=== PATIENT | female | born 1950 | race Caucasian/White ===

== ENCOUNTER → 2023-04-08 14:36 | Outpatient (CLI) | payer OTHER, SELFPAY ==
[2023-04-08 15:30] LABS: Add Manual Diff / Slide Review NO; Basophils Absolute Auto 0 /uL (0-100); Basophils Percent Auto 0.6 % (0-2); Eosinophils Absolute Auto 100 /uL (0-450); Eosinophils Percent Auto 2.4 % (2-4); Hematocrit 38.8 % (36-46); Lymphocytes Absolute Auto 1500 /uL (1100-4500); Mean Corpuscular HGB Conc 33.5 % (30-36); Mean Corpuscular Hemoglobin 31.8 PG (26-34); Mean Corpuscular Volume 94.9 fL (80-100); Monocytes Absolute Auto 300 /uL (0-900); Neutrophils Absolute Auto 2800 /uL (1500-7000); Platelet Count 216 X10^3/uL (150-400); Red Blood Cell Count 4.09 X10^6/uL (4.0-5.2); Red Cell Distribution Width 13.9 % (11.6-14.8); White Blood Cell Count 4.7 X10^3/uL (4.5-11.0)
[2023-04-08 15:39] LABS: Hemoglobin A1C% w Est Avg Glu 5.9 % (4.0-6.0)
[2023-04-08 16:32] LABS: Alanine Aminotransferase 18 IU/L (<35); Albumin 3.7 g/dL (3.5-5.0); Albumin Globulin Ratio 1.4 (1.0-2.8); Alkaline Phosphatase 45 U/L (38-126); Aspartate Aminotransferase 25 IU/L (14-36); BUN Creatinine Ratio 22.8 (6-22); Bilirubin Total 0.6 mg/dL (0.2-1.3); Blood Urea Nitrogen 21 mg/dL (7-17); Calcium 8.9 mg/dL (8.4-10.2); Carbon Dioxide 30 mmol/L (22-32); Chloride 101 mmol/L (98-107); Cholesterol 137 mg/dL (140-199); Estimated Glomerular Filt Rate > 60 mL/min (>60); Globulin 2.6 g/dL (1.7-4.1); Glucose 132 mg/dL (80-110); HDL Cholesterol 63 mg/dL (40-60); HEMOLYSIS < 15 (0-50); LDL Cholesterol Calculated 42 mg/dL (<100); Potassium 3.7 mmol/L (3.4-5.1); Sodium 138 mmol/L (137-145); Total Protein 6.3 g/dL (6.3-8.2); Triglycerides 158 mg/dL (35-150)
[2023-04-08 17:00] LABS: Thyroid Stimulating Hormone 1.57 uIU/mL (0.47-4.68)
[2023-04-10 16:54] LABS: HIV 1 & 2 Ab/Ag 4th Gen Combo NEGATIVE (NEGATIVE); Hep C Virus Ab w/Reflex Quant NEGATIVE s/c (NEGATIVE)
== END ==
PROVIDERS: Family Provider Family Medicine; PCP Family Medicine; Referring Provider Family Medicine; Visit Provider Family Medicine
DX: G40.909 Epilepsy, unspecified, not intractable, without status epilepticus (principal); F32.A Depression, unspecified; E03.9 Hypothyroidism, unspecified; Z13.9 Encounter for screening, unspecified; Z13.220 Encounter for screening for lipoid disorders; Z79.810 Long term (current) use of selective estrogen receptor modulators (SERMs); Z11.4 Encounter for screening for human immunodeficiency virus [HIV]; Z85.3 Personal history of malignant neoplasm of breast; K22.70 Barrett's esophagus without dysplasia; Z11.59 Encounter for screening for other viral diseases; Z13.1 Encounter for screening for diabetes mellitus
CPT/HCPCS: 36415; 80053; 80061; 83036; 84443; 85025; 86803; 87389

== ENCOUNTER → 2023-04-09 14:39 | Outpatient (CLI) | payer OTHER, SELFPAY ==
[2023-04-09 18:35] LABS: Urine N gonorrhoeae NOT DETECTED
[2023-04-09 18:47] LABS: Urine Chlamydia NOT DETECTED
== END ==
PROVIDERS: Family Provider Family Medicine; PCP Family Medicine; Referring Provider Family Medicine; Visit Provider Family Medicine
DX: Z13.9 Encounter for screening, unspecified (principal); N89.8 Other specified noninflammatory disorders of vagina
CPT/HCPCS: 87491; 87591

== ENCOUNTER → 2023-04-11 14:55 | Outpatient (CLI) | payer OTHER, SELFPAY | PROVIDERS: Family Provider Family Medicine; PCP Family Medicine; Visit Provider Family Medicine | DX: N89.8 Other specified noninflammatory disorders of vagina (principal) | CPT/HCPCS: 87210 ==

== ENCOUNTER → 2023-07-09 10:41 | Outpatient (CLI) | payer OTHER, SELFPAY | PROVIDERS: Family Provider Family Medicine; PCP Family Medicine; Visit Provider Physician Assistant | DX: N89.8 Other specified noninflammatory disorders of vagina (principal) | CPT/HCPCS: 81001; 87086; 87210 ==

== ENCOUNTER → 2023-07-18 08:44 | Outpatient (CLI) | payer OTHER, SELFPAY ==
--- NOTE | 2023-07-18 08:45 | DI.US.S_ITS ---
PROCEDURE: US PELVIC COMPLETE INDICATIONS: vaginal discharge and vaginal bleeding TECHNIQUE: Real-time scanning was performed of the pelvic organs, with image documentation. Additional endovaginal scanning was necessary due to incomplete visualization of the adnexal and endometrial structures by transabdominal scanning. COMPARISON: None. FINDINGS: Uterus: Uterus is retroverted and normal in size at 7.7 x 3.4 x 5.8 cm. The myometrium is heterogeneous. Complex cystic area within the fundal endometrium. There is a right anterior subserosal fibroid measuring 3.6 x 2.4 x 4.3 cm. Ovaries: The right ovary is not seen. The left ovary measures 2.7 x 1.2 x 1.5 cm, with a calculated ovarian volume of 2.5 cc. Normal appearance of the left ovary. No adnexal masses are seen. Other: No pathologic free abdominal or pelvic fluid. IMPRESSION: Complex cystic area within the fundal endometrium. Recommend further evaluation with endometrial sampling or short-term follow-up ultrasound. Subserosal fibroid measuring 4.3 cm. Right ovary is not seen. Left ovary is normal in appearance. We strive to produce accurate, complete, and clear reports of imaging services. To assist us in improving patient care, this report was composed using standard report templates and voice recognition software. Therefore, it may contain abnormal punctuation, insertions and/or omissions. Occasional wrong-word or sound-alike substitutions may occur. Though we review the report and make efforts to correct it, we do recommend that the report be read carefully in proper context to recognize any text inaccuracies. Dictated by: Sanjay Yin M.D. on 07/18/2023 at 9:51 Approved by: Sanjay Yin M.D. on 07/18/2023 at 9:59
== END ==
PROVIDERS: Family Provider Family Medicine; PCP Family Medicine; Referring Provider Physician Assistant; Visit Provider Physician Assistant
DX: N93.9 Abnormal uterine and vaginal bleeding, unspecified (principal); N89.8 Other specified noninflammatory disorders of vagina; D25.2 Subserosal leiomyoma of uterus
CPT/HCPCS: 76856

== ENCOUNTER → 2023-08-08 16:01 | Outpatient (CLI) | payer OTHER, SELFPAY | PROVIDERS: PCP Family Medicine; Visit Provider Obstetrics & Gynecology | DX: R31.9 Hematuria, unspecified (principal); R82.998 Other abnormal findings in urine | CPT/HCPCS: 87086 ==

== ENCOUNTER 2023-08-14 06:41 | Day surgery (SDC) | payer OTHER, SELFPAY ==
[2023-08-06 15:08] VITALS: BMI 26.3
--- NOTE | 2023-08-14 | PATH_ITS ---
[facility] Accession Number: [id number] No. of containers..02 Tissue . 01 Material submitted: . PART A: endocervix - ENDOCERVICAL CURRETTINGS PART B: endometrium - ENDOMETRIAL CURRETTINGS . 01 Diagnosis: A. Endocervical curettings: Benign reactive endocervical glands with active inflammation, with benign superficial squamous epithelium is seen. Negative for malignancy. See comment. -- B. Endometrial curettings: Benign strips of inactive endometrium. Negative for atypia, hyperplasia, or malignancy. -- Comment for part A. Reactive endocervical glands are seen with occasional glands with multinucleation and active inflammation therefore immunohistochemical stains are performed on part A with appropriate controls and show: p16 is negative, and HSV1/2 is negative. Technical Note: The immunohistochemical stains reported were performed at [facility] [place] ([address], [facility] [address]). They were developed and their performance characteristics determined by [employer]. They have not been cleared or approved by the U.S. Food and Drug Administration, although such approval is not required for analyte-specific reagents of this type. [facility] 08/21/2023 1230 Local . 01 Electronically signed: . Shankar Newton MD, Pathologist NPI- [id number] . 01 Gross description: . Part A: ENDOCERVICAL CURRETTINGS: Received in formalin are minute fragments of mucoid and hemorrhagic material measuring 0.5 x 0.5 x 0.1 cm in aggregate. Submitted in toto in 1 cassette. Part B: ENDOMETRIAL CURRETTINGS: Received in formalin are minute fragments of mucoid and hemorrhagic material measuring 1.0 x 1.0 x 0.2 cm in aggregate. Submitted in toto in 1 cassette. /[facility] 08/19/2023 1808 Local . 01 Pathologist provided ICD-10: R93.5 . 01 CPT . 250596, 126108, V10688, I16425 Specimen Comment: A courtesy copy of this report has been sent to [phone] Performed at: [address] [facility] [address] [address], [place], [place] [id number] MD Gianni Ortega MD Phone: [phone]
[2023-08-14 07:25] VITALS: BP 129/75; PULSE 66; RESP 14; TEMP 36.4; O2SAT 97; BMI 26.3
[2023-08-14] MEDS: LACTATED RINGERS 1,000 ML 42 ML IV (07:32)
[2023-08-14] MEDS: ACETAMINOPHEN 325 MG TABLET 975 MG PO (07:34)
--- NOTE | 2023-08-14 07:38 | PM.PREOP ---
Pre-operative Note COVID-19 COVID-19 status: Not tested Interval Note History & Physical reviewed/Exam performed by Physician: Yes Changes to H&P: No
--- NOTE | 2023-08-14 08:02 | SUR.OPER ---
Lithotomy on padded OR bed, head on pillow, arms secured on padded arm boards at <90 degrees abduction. Legs secured in padded yellow fins stirrups.
[2023-08-14 08:28] VITALS: BP 128/62; PULSE 68; RESP 20; TEMP 36.6; O2SAT 98
--- NOTE | 2023-08-14 08:32 | P.OP_ITS ---
Operative Date/Time/Diagnoses Date of procedure: 08/14/23 Time of procedure: 08:00 Pre-op diagnosis: Abnormal endometrial stripe on ultrasound Post-op diagnosis: same Procedure & Clinicians Procedure: Procedures Operation Date: 08/14/23 07:45 Actual Procedure Side Surgeon p Hysteroscopy with Dilation & Curettage of the uterus César Cardenas MD Indications: Krystina is a 73-year-old , LMP in her early 50s who presents with a several year history of vaginal discharge. The vaginal discharge is light yel low, non odorous, non irritating, and she has no itching with it. 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 Her Paps have always been normal with her most recent about 2 years ago. In addition the patient has experienced light vaginal bleeding following pelvic exam and after vaginal ultrasound. A recent pelvic ultrasound performed 07/18/2023 shows: FINDINGS: Uterus: Uterus is retroverted and normal in size at 7.7 x 3.4 x 5.8 cm. The myometrium is heterogeneous. Complex cystic area within the fundal endometrium. There is a right anterior subserosal fibroid measuring 3.6 x 2.4 x 4.3 cm. Ovaries: The right ovary is not seen. The left ovary measures 2.7 x 1.2 x 1.5 cm, with a calculated ovarian volume of 2.5 cc. Normal appearance of the left ovary. No adnexal masses are seen. Other: No pathologic free abdominal or pelvic fluid. IMPRESSION: Complex cystic area within the fundal endometrium. Recommend further evaluation with endometrial sampling or short-term follow-up ultrasound. Subserosal fibroid measuring 4.3 cm. Right ovary is not seen. Left ovary is normal in appearance. We had an extended discussion about the cause and nature of her vaginal discharge along with the endometrial abnormality seen on ultrasound. We discussed options for further evaluation of her endometrial abnormality noted on ultrasound. Endometrial biopsy would be an option but given that this is a localized lesion in the uterine fundus, and the diagnostic accuracy of endometrial biopsy is less than 100% particularly with localized lesions, she would instead prefer to move forward with hysteroscopy and possible biopsies along with dilation and curettage of the uterus. I concur fully with her decision and will move forward with scheduling hysteroscopy with possible biopsies and dilation and curettage. She presents today for her scheduled surgery. Surgeon: César Cardenas Anesthesia Type: General Operative Notes Findings: Stage II uterovaginal prolapse. Stage II-III enterocele/rectocele complex. The endometrium is atrophic and what is seen on ultrasound appears to be either scarring in the midline of the fundus or possibly a small midline septum. No endometrial abnormalities were seen and both tubal ostia were visualized. The endometrial cavity was documented photographically. Closure Type: not applicable Specimen(s): endometrial curettings and other (Endocervical curettings) Estimated blood loss (mL): 5 Blood products transfused: none Procedure in detail: With the patient under general LMA in the modified dorsal lithotomy position, the perineum, vagina, and lower abdomen were prepped and draped in the usual fashion for hysteroscopy with endometrial ablation. A pre-surgical safety time- out was then taken in accordance with [facility] Main OR protocols. A bivalve speculum was inserted in the vagina and the cervix visualized. The anterior lip of the cervix was grasped with a single-tooth tenaculum and the endocervical canal was then dilated to 6 mm diameter. Hysteroscope was placed through the endocervical canal into the endometrial cavity and the cavity was visualized with the findings noted above. There were no localized abnormalities within the endometrial cavity and the endometrium itself was unremarkable. Both tubal ostia were visualized. The I and O fluid deficit for hysteroscopy was 100 cc. The hysteroscope was then withdrawn and a fractional dilation and curettage was accomplished with separate pathologic specimen submitted for the endometrial and endocervical curettings. The tenaculum was then removed from the anterior lip of the cervix and no bleeding was encountered. The speculum was then removed from the vagina and the patient awakened from anesthesia. She was then transferred to the PACU for a period of observation and recovery having tolerated the procedure well. Complications: none Post-operative Condition: stable Disposition: PACU Plan for aftercare: Routine postoperative care follow-up planned for 2 weeks post-op.
[2023-08-14 08:34] VITALS: BP 110/56; PULSE 73; RESP 13; O2SAT 97
[2023-08-14 08:39] VITALS: BP 115/69; PULSE 71; RESP 15; O2SAT 95
== END 2023-08-14 08:58 | disposition home or self-care (01) ==
PROVIDERS: PCP Family Medicine; Referring Provider Obstetrics & Gynecology; Visit Provider Obstetrics & Gynecology
PROC: 0UDB8ZZ Extraction of Endometrium, Via Natural or Artificial Opening Endoscopic (ICD-10-PCS; CPT 58558; principal; 2023-08-14 07:45)
DX: N85.8 Other specified noninflammatory disorders of uterus (principal)
CPT/HCPCS: 58558; J1100; J2405; J2704; J3010

== ENCOUNTER → 2023-08-27 07:23 | Outpatient (CLI) | payer OTHER, SELFPAY | PROVIDERS: PCP Family Medicine; Visit Provider Nurse Practitioner Family | DX: R39.9 Unspecified symptoms and signs involving the genitourinary system (principal) | CPT/HCPCS: 87077; 87086 ==

== ENCOUNTER → 2023-09-03 17:29 | Outpatient (CLI) | payer OTHER, SELFPAY ==
[2023-09-03 18:30] LABS: Appearance Urine UA CLEAR; Bilirubin Urine UA NEGATIVE (NEGATIVE); Color Urine UA YELLOW; Glucose Urine UA NEGATIVE (Negative); Ketones Urine UA NEGATIVE (NEGATIVE); Leukocyte Esterase Urine UA NEGATIVE (NEGATIVE); Nitrite Urine UA NEGATIVE (Negative); Occult Blood Urine UA NEGATIVE (Negative); Protein Urine UA NEGATIVE (Negative); Specific Gravity Urine UA <=1.005 (1.000-1.035); Urobilinogen Urine UA 0.2 E.U./dL (0.2)
[2023-09-03 18:37] LABS: pH Urine UA 5.5 (4.5-8.0)
[2023-09-03 18:41] LABS: Bacteria Urine None Seen; Culture Indicated Urine Cult Not Indicated; RBC Urine None Seen (0-5/HPF); Squamous Epithelial Cell Urine None Seen (0-5/HPF); Urine Volume 10mL (spun); WBC Urine None Seen (0-5/HPF)
== END ==
PROVIDERS: PCP Family Medicine; Referring Provider Family Medicine; Visit Provider Family Medicine
DX: R30.0 Dysuria (principal)
CPT/HCPCS: 81001

== ENCOUNTER → 2024-01-08 12:40 | Outpatient (CLI) | payer OTHER, SELFPAY | PROVIDERS: PCP Family Medicine; Visit Provider Physician Assistant Medical | DX: R30.0 Dysuria (principal) | CPT/HCPCS: 87077; 87086 ==

== ENCOUNTER → 2024-07-20 07:21 | Outpatient (CLI) | payer OTHER, SELFPAY ==
--- NOTE | 2024-07-20 07:23 | DI.RAD.S_ITS ---
PROCEDURE: XR HAND LT 2V INDICATIONS: chronic left thumb pain TECHNIQUE: 2 views of the hand(s) acquired. COMPARISON: None. FINDINGS: Bones: No fractures or dislocations. Carpal bones are normally aligned. No suspicious bony lesions. Mild to moderate 1st CMC as well as scattered IP degenerative narrowing. Soft tissues: No suspicious soft tissue calcifications. IMPRESSION: Arthritic changes as above. Dictated by: Neena Glynn M.D. on 07/20/2024 at 9:20 Approved by: Neena Glynn M.D. on 07/20/2024 at 9:21
[2024-07-20 08:19] LABS: Hematocrit 36.2 % (36-46); Hemoglobin 12.3 g/dL (12.0-16.0); Mean Corpuscular Hemoglobin 32.4 PG (26-34); Mean Corpuscular Volume 95.2 fL (80-100); Platelet Count 210 X10^3/uL (150-400); Red Cell Distribution Width 13.2 % (11.6-14.8); White Blood Cell Count 4.1 X10^3/uL (4.5-11.0)
[2024-07-20 08:53] LABS: Alanine Aminotransferase 18 IU/L (<35); Albumin 3.6 g/dL (3.5-5.0); Albumin Globulin Ratio 1.8 (1.0-2.8); Alkaline Phosphatase 54 U/L (38-126); Aspartate Aminotransferase 25 IU/L (14-36); BUN Creatinine Ratio 25.6 (6-22); Bilirubin Total 0.4 mg/dL (0.2-1.3); Blood Urea Nitrogen 20 mg/dL (7-17); Calcium 9.1 mg/dL (8.4-10.2); Carbon Dioxide 29 mmol/L (22-32); Chloride 106 mmol/L (98-107); Cholesterol 139 mg/dL (140-199); Estimated Glomerular Filt Rate > 60 mL/min (>60); Glucose 121 mg/dL (70-99); HDL Cholesterol 55 mg/dL (40-60); HEMOLYSIS < 15 (0-50); LDL Cholesterol Calculated 65 mg/dL (<100); Potassium 4.6 mmol/L (3.4-5.1); Sodium 140 mmol/L (137-145); Total Protein 5.6 g/dL (6.3-8.2); Triglycerides 95 mg/dL (35-150)
[2024-07-20 09:08] LABS: Free T4, Direct Thyroxine 1.16 ng/dL (0.78-2.19)
[2024-07-20 09:22] LABS: Thyroid Stimulating Hormone 0.938 uIU/mL (0.47-4.68)
== END ==
PROVIDERS: PCP Family Medicine; Referring Provider Family Medicine; Visit Provider Family Medicine
DX: M79.645 Pain in left finger(s) (principal); G89.29 Other chronic pain; E03.9 Hypothyroidism, unspecified; E78.1 Pure hyperglyceridemia; I10 Essential (primary) hypertension
CPT/HCPCS: 36415; 73120; 80053; 80061; 84439; 84443; 85027